=== PATIENT | female | born 1985 | race Caucasian/White ===

== ENCOUNTER 2016-03-18 16:24 | Emergency (ER) | payer MEDICAID | END 2016-03-18 18:59 | disposition home or self-care (01) | LOC: ER 16:24 | DX: O23.12 Infections of bladder in pregnancy, second trimester (principal); Z3A.18 18 weeks gestation of pregnancy; F17.210 Nicotine dependence, cigarettes, uncomplicated; Z79.899 Other long term (current) drug therapy; Z91.040 Latex allergy status | CPT/HCPCS: 81001; 87077; 87088; 87186 ==